=== PATIENT | male | born 1950 | race Caucasian/White ===

== ENCOUNTER 2018-08-24 14:24 | Inpatient (IN) | payer OTHER ==
[2018-08-24] MEDS ORDERED: ACETAMINOPHEN 325 MG TAB PO PRN (16:48)
[2018-08-24] MEDS ORDERED: traMADol 50 MG TAB PO PRN (16:48)
[2018-08-24] MEDS ORDERED: IPRATROPIUM/ALBUTEROL 3 ML DEYVIAL IH PRN (16:48)
[2018-08-24] MEDS ORDERED: ONDANSETRON DISINTEGRATING 4 MG TAB PO PRN (16:48)
--- NOTE | 2018-08-24 17:24 | GHP ---
POST ADMISSION PHYSICIAN EVALUATION AND REHABILITATION TREATMENT PLAN. DATE OF ADMISSION: 08/24/2018 DATE OF EVALUATION: 08/24/2018 TIME OF EVALUATION: 1610 hours. REFERRING FACILITY: [facility]. REFERRING PHYSICIAN: Dr. Ramirez. CONSULTING PHYSICIANS: Dr. Lewis of Neurosurgery and Dr. Walker of pulmonology. 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 IMPAIRMENT GROUP: 2.1. DATE OF ONSET: 08/16/2018. DATE OF SURGERY: 08/19/2018. HISTORY OF PRESENT ILLNESS: This patient came to [facility] on 08/16/2018, with a history of falls and headaches which have been going on for about 2 months. He was found to be hypertensive and required IV nicardipine. He also had hypokalemia, which was replaced. A head CT was done, which showed a cerebellar mass with obstructive hydrocephalus. 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 He was started on dexamethasone. He went to the operating room on 08/19/2018, for a right cerebellar craniotomy and resection of the mass. Postoperatively, he had pain, hypoxemia, steroid induced leukocytosis, and issues with blood pressure management. Pathology showed hemangioblastoma. He had an abdominal CT to evaluate for renal masses. There were multiple lesions which were too small to characterize for which he was recommended to have a followup renal ultrasound in approximately 6 months. He also had an incidental finding of aneurysms of the infrarenal aorta and left common iliac artery. Additionally, bullous emphysema was seen. OTHER STUDIES AND LABS: In the hospital, he had multiple brain imaging pre and postoperative. Hypokalemia was corrected. Otherwise, renal function and electrolytes were generally normal. Liver functions were normal. Brain natriuretic peptide was minimally elevated to 15. Lipase was normal. CBC initially was normal. Subsequently, he had anemia and there was leukocytosis. On 08/22/2018, CBC showed an elevated white blood cell count of 13.6, hemoglobin was 12.1 and hematocrit was 34.6. Coagulation studies showed normal PT and PTT. PRECAUTIONS: He is a fall risk. ACTIVE COMORBIDITIES: He has no active tier 1, tier 2 or tier 3 comorbidities. PAST MEDICAL HISTORY: 1. Emphysema. 2. Hypertension. 3. Tobacco dependence. PAST SURGICAL HISTORY: He has had bilateral inguinal and umbilical hernia repairs. He has had right shoulder surgery. PRE-HOSPITAL MEDICATIONS: Only ibuprofen as needed. ADMISSION MEDICATIONS: 1. Acetaminophen 650 mg p.o. q.4 hours p.r.n. 2. Amlodipine 10 mg p.o. daily. 3. Dexamethasone taper. 4. Enoxaparin 40 mg subcutaneous daily. 5. Hydralazine 25 mg p.o. t.i.d. 6. Ipratropium/albuterol nebulizer q.6 hours. 7. Lisinopril 20 mg p.o. daily. 8. Ondansetron 4 mg p.o. q.4 hours p.r.n. 9. Tramadol 50 mg p.o. q.6 hours p.r.n. ALLERGIES: There are no known drug allergies. PSYCHOSOCIAL HISTORY: He is . He lives with his . He is a former smoker and says that he has quit. The hospital admission note reports current marijuana use. He does not use alcohol. He is retired from [employer] or [employer] work on the [employer]. FAMILY HISTORY: Noncontributory. REVIEW OF SYSTEMS: He denies pain. He says he has an occasional cough. He has double vision, which resolves if he closes one or the other eye. He denies weakness, numbness or tingling. He denies chest pain or palpitations. He denies nausea, vomiting, constipation, diarrhea. He thinks he has wax in his ears and reports reduced hearing, especially out of the left ear. He reports urinary frequency. He says he has been sleeping well, but interrupted by the need to urinate. Otherwise, a 10-point review of systems is negative. PHYSICAL EXAM: VITAL SIGNS: Blood pressure is 144/91, heart rate is 108, respiratory rate is 17 oxygen saturation is 93% on room air. Temperature is 36.6 degrees centigrade. His weight is 58.9 kg for a body mass index of 19.2. GENERAL: This is a well-nourished, well-developed man, unkempt with long hair and a long moon, appears his chronologic age, cooperative and in no acute distress. HEENT: Extraocular movements are intact except for deficit to accommodation on near vision. Pupils are equal, round, reactive to light. Mucous membranes are moist. Dentition is in moderately poor condition with overt halitosis. He has an uncrowded airway, Mallampati class 2. NECK: Supple. HEART: There is a regular rate and rhythm with no murmurs, rubs, or gallops. He is tachycardic. LUNGS: Clear to auscultation bilaterally. ABDOMEN: Soft, nontender, nondistended with normoactive bowel sounds. EXTREMITIES: There is no cyanosis, clubbing, or edema. NEUROLOGIC: He is alert and oriented x3. Cranial nerves 2-12 are grossly intact. There is no focal weakness. Sensation is intact to light touch. Finger-nose testing is very mildly impaired on the right, is normal on the left. Tbit-ib-[id number] coordination is normal. There is no pronator drift. CURRENT LEVEL OF FUNCTION per the pre-admission screen. Regarding diet, feeding , and swallowing, he was on a regular diet. Grooming was done with standby assist and voice cues. Dressing upper body required setup. Lower body required standby assist for safety and balance during clothing management. Transfers were done with contact guard to standby assist. He was using a bath/ shower seat or chair, grab bars, and a handheld shower. Balance required contact guard to minimal assist. Endurance was fair. He was able to ambulate 300 feet with contact guard to minimal assist without an assistive device. There were 2 episodes of path deviation requiring minimal assist to prevent loss of balance and maintain path. Communication and cognition were considered normal. He was a fall risk. On today's exam there are no significant changes from the pre-admission screen. IMPRESSION: This is a 68-year-old man who developed balance impairment and falls, as well as headaches, which prompted hospital evaluation. He was found to have a right cerebellar mass. He underwent craniotomy and excision of the mass. He was placed on dexamethasone to reduce brain edema and he continues on a dexamethasone taper. He was found to have a high blood pressure and was initially treated with IV nicardipine and subsequently maintained on 3 oral medications. He otherwise came through surgery well without significant hospital complications and is medically stable and ready for inpatient rehabilitation. His goal is to complete a rehabilitation stay and then return home with his family. For a safe discharge, he will need to achieve independence with bed mobility, transfers, toileting, and dressing. He will need to ambulate with modified independence with the least restrictive device on level and unlevel surfaces. He may continue to require supervision for bathing and he likely will require assistance for household management, and shopping. He will need to have pain and blood pressure well managed. He will have therapy with Physical Therapy, Occupational Therapy, and Speech and Language Pathology for 60 minutes per day for each discipline on 5-7 days of the week. His anticipated duration of stay is 5-7 days. It is anticipated that upon discharge, he will continue to benefit from home health services including Speech and Language Pathology, Occupational Therapy, and Physical Therapy. Additionally, he will likely benefit from a brain injury support group. PLAN 1. Debility with balance impairment, status post craniotomy and excision of cerebellar hemangioblastoma. PT and OT to optimize mobility and activities of daily living to the independent or modified independent level. 2. Question of cognitive effects. Assessment and treatment per Speech and Language Pathology. 3. Diplopia. Expect that this will gradually improve as the brain adapts. Unclear whether cerebellar function involving eye movements will recover. He will be seen by occupational therapy for eye patching or other strategies. 4. Hypertension. Continue current medications. Ideally, he will not be needing the hydralazine. Blood pressure may improve as dexamethasone is tapered. 5. Emphysema. He has been prescribed an ipratropium/albuterol nebulizer on a p.r.n. basis every 6 hours. He will be monitored for any difficulty with breathing. He is not hypoxic at rest. 6. Tachycardia of unclear etiology. He has been intermittently tachycardic throughout his hospitalization. There has not been an EKG done, but he has a regular rhythm. He will be monitored and would consider further evaluation if it persists or if he appears to have any cardiorespiratory compromise. 7. History of tobacco dependence syndrome. He reports that he quit in the past and is not desiring any nicotine replacement. 8. 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 He will have followup which can be coordinated per his primary care per physician. 9. Hypodensities of the kidneys. He should have a followup ultrasound in 6 months. 10. Followup. He needs to establish with a primary care physician. Will discuss with Neurosurgery regarding when they would like to see him again. /[id number]/MODL and [id number]/MODL [facility]
[2018-08-24] MEDS: DEXAMETHASONE 4 MG TAB PO SCH (18:40)
[2018-08-24] MEDS: hydrALAZINE 25 MG TAB PO SCH (20:39)
[2018-08-25] MEDS: DEXAMETHASONE 4 MG TAB PO SCH ×4 (01:15→23:53)
[2018-08-25] MEDS: amLODIPine BESYLATE 5 MG TAB PO SCH (09:24)
[2018-08-25] MEDS: ENOXAPARIN 40 MG/0.4 ML SYR SC SCH (09:25)
[2018-08-25] MEDS: LISINOPRIL 20 MG TAB PO SCH (09:25)
[2018-08-25] MEDS: hydrALAZINE 25 MG TAB PO SCH ×3 (09:25→21:14)
--- NOTE | 2018-08-25 10:34 | SOAPPROG ---
SOAP Progress Note Assessment/Plan: Assessment: Debility with balance impairment, status post craniotomy and excision of cerebellar hemangioblastoma. PT and OT to optimize mobility and activities of daily living to the independent or modified independent level. Question of cognitive effects. Assessment and treatment per Speech and Language Pathology. Diplopia. Expect that this will gradually improve as the brain adapts. Unclear whether cerebellar function involving eye movements will recover. He will be seen by occupational therapy for eye patching or other strategies. Hypertension. Continue current medications. Ideally, he will not be needing the hydralazine. Blood pressure may improve as dexamethasone is tapered. Tachycardia of unclear etiology. He has been intermittently tachycardic throughout his hospitalization. There has not been an EKG done, but he has a regular rhythm. He will be monitored and would consider further evaluation if it persists or if he appears to have any cardiorespiratory compromise. Urinary frequency. Check bladder scan. No sign signs or symptoms otherwise of UTI. Emphysema. He has been prescribed an ipratropium/albuterol nebulizer on a p.r.n. basis every 6 hours. He will be monitored for any difficulty with breathing. He is not hypoxic at rest. Cerumen. Debrox begun 08/25/2018. History of tobacco dependence syndrome. He reports that he quit in the past and is not desiring any nicotine replacement. 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 He will have followup which can be coordinated per his primary care per physician. Hypodensities of the kidneys. He should have a followup ultrasound in 6 months. FOLLOW-UP: He needs to establish with a primary care physician. Will discuss with Neurosurgery regarding when they would like to see him again. 08/25/18 11:55 Subjective: No complaints. Slept well. No fevers or chills, no cough or dyspnea. Still has frequent urination. No dysuria. Objective: Vital Signs Temp Pulse Resp BP Pulse Ox 37.0 C 109 H 18 154/108 H 97 08/25/18 06:42 08/25/18 06:42 08/25/18 06:42 08/25/18 06:42 08/25/18 06:42 08/24/18 08/25/18 08/26/18 05:59 05:59 05:59 Intake Total 540 600 Balance 540 600 Physical Exam - Physical Exam General Appearance: WD/WN, alert, no apparent distress Respiratory: normal breath sounds, No crackles, No rhonchi, No wheezing Cardiac/Chest: regular rate, rhythm, No edema, No diastolic murmur, No systolic murmur Skin: normal color, warm/dry Neuro/Psych: alert, normal mood/affect, oriented x 3 ICD10 Worksheet Patient Problems: Problems Problem Status Onset Cerebellar mass Acute Hydrocephalus Acute Hypertension Acute
--- NOTE | 2018-08-25 10:34 | PDOREHIP ---
Admission [facility] - Admission - 3 Day Assessment Period Admission Date/Day 1: 08/24/18 Day 2: 08/25/18 Day 3: 08/26/18 - Active Diagnoses Comorbidities and Co-existing Conditions at Admission: 98169. None of the Above - Skin Conditions Unhealed Pressure Ulcer (1 or more/Stage 1 or >)-Admission: 0. No # Stage 1 Pressure Ulcers-Admission: 0 # Stage 2 Pressure Ulcers-Admission: 0 # Stage 3 Pressure Ulcers-Admission: 0 # Stage 4 Pressure Ulcers-Admission: 0 # Unstageable Pressure Ulcers (Non-remove Dress)-Admission: 0 # Unstageable Pressure Ulcers (Slough/Eschar)-Admission: 0 # Unstageable Pressure Ulcers (Deep Tissue Injury)-Admission: 0
[2018-08-25] MEDS: CARBAMIDE PEROXIDE 15 ML OTIC.BTL EACHEAR SCH ×2 (14:54→21:15)
[2018-08-26] MEDS: ENOXAPARIN 40 MG/0.4 ML SYR SC SCH (08:49)
[2018-08-26] MEDS: hydrALAZINE 25 MG TAB PO SCH ×3 (08:51→21:08)
[2018-08-26] MEDS: amLODIPine BESYLATE 5 MG TAB PO SCH (08:51)
[2018-08-26] MEDS: DEXAMETHASONE 4 MG TAB PO SCH ×3 (08:51→17:07)
[2018-08-26] MEDS: LISINOPRIL 20 MG TAB PO SCH (08:51)
[2018-08-26] MEDS: CARBAMIDE PEROXIDE 15 ML OTIC.BTL EACHEAR SCH ×2 (08:52→21:08)
--- NOTE | 2018-08-26 15:50 | SOAPPROG ---
SOAP Progress Note Assessment/Plan: Assessment: Debility with balance impairment, status post craniotomy and excision of cerebellar hemangioblastoma. * Independent with bed mobility. Ambulated 400 ft with a four wheeled walker and supervision. Has tendency to lose balance to the right but self corrects. Climbed and descended 12 steps in a step over step pattern with 1 rail and cues and supervision for safety. Standby assist for ADLs except minimal assist for bathing. Still complaining of double vision. * Continue PT and OT to optimize mobility and activities of daily living to the independent or modified independent level. Cognitive impairment. * 23/30 on the [place] cognitive assessment on 08/25/2018. Deficits with recall, word generation and visuospatial task (attention to detail). Noted to have impulsivity. * Continue Speech and Language Pathology. Diplopia. Expect that this will gradually improve as the brain adapts. Unclear whether cerebellar function involving eye movements will recover. He will be seen by occupational therapy for eye patching or other strategies. Hypertension. Continue current medications. Ideally, he will not be needing the hydralazine. Blood pressure may improve as dexamethasone is tapered; next dose reduction is in the evening of 08/27/2018, from 4 mg q.8 hours to 4 mg q.12 hours. Continue to monitor as dexamethasone dose is reduced. Tachycardia of unclear etiology. He has been intermittently tachycardic throughout his hospitalization. There has not been an EKG done, but he has a regular rhythm. * Improving on vitals 08/26/2018. Urinary frequency. Check bladder scan. No sign signs or symptoms otherwise of UTI. Emphysema. He has been prescribed an ipratropium/albuterol nebulizer on a p.r.n. basis every 6 hours. He will be monitored for any difficulty with breathing. He is not hypoxic at rest. Cerumen. Debrox begun 08/25/2018. History of tobacco dependence syndrome. He reports that he quit in the past and is not desiring any nicotine replacement. 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 He will have followup which can be coordinated per his primary care per physician. Hypodensities of the kidneys. He should have a followup ultrasound in 6 months. Prophylaxis. Mobility is much improved. Will discontinue enoxaparin starting 08/27/2018. FOLLOW-UP: He needs to establish with a primary care physician. Will discuss with Neurosurgery regarding when they would like to see him again. 08/26/18 15:52 Subjective: Slept well. Reports urinary frequency. Not in pain. Likes the front wheeled walker that he is using here and like to have one at home especially for going out to the mailbox to check the mail with the dog. Objective: Vital Signs Temp Pulse Resp BP Pulse Ox 36.9 C 89 16 136/95 H 94 08/26/18 08:00 08/26/18 08:00 08/26/18 08:00 08/26/18 08:51 08/26/18 08:00 08/25/18 08/26/18 08/27/18 05:59 05:59 05:59 Intake Total 540 2250 Balance 540 2250 Physical Exam - Physical Exam General Appearance: WD/WN, alert, no apparent distress Respiratory: No respiratory distress, No accessory muscle use Skin: normal color, warm/dry Neuro/Psych: alert, normal mood/affect, oriented x 3 ICD10 Worksheet Patient Problems: Problems Problem Status Onset Cerebellar mass Acute Hydrocephalus Acute Hypertension Acute
[2018-08-26] MEDS: ACETAMINOPHEN 650 MG/20.3 ML UDCUP PO PRN (17:41)
[2018-08-27] MEDS: DEXAMETHASONE 4 MG TAB PO SCH ×3 (01:56→17:21)
[2018-08-27] MEDS: hydrALAZINE 25 MG TAB PO SCH ×3 (08:40→20:43)
[2018-08-27] MEDS: LISINOPRIL 20 MG TAB PO SCH (08:42)
[2018-08-27] MEDS: amLODIPine BESYLATE 5 MG TAB PO SCH (08:43)
[2018-08-27] MEDS: CARBAMIDE PEROXIDE 15 ML OTIC.BTL EACHEAR SCH ×2 (08:43→20:42)
[2018-08-27] MEDS: TAMSULOSIN HCL 0.4 MG CAP PO SCH (09:31)
--- NOTE | 2018-08-27 11:49 | SOAPPROG ---
SOAP Progress Note Assessment/Plan: Assessment: Debility with balance impairment, status post craniotomy and excision of cerebellar hemangioblastoma. * Initial functional independence measure 97 on 08/27/2018. Independent with bed mobility, transfers and ambulation with a 4 wheeled walker. He ambulated 150 ft. He had loss of balance with a cane. He climbed and descended 12 steps with 1 rail and supervision. He has decreased strength proprioception and balance and a rightward list. He is independent for ADLs. Still complaining of double vision. * Continue PT and OT to optimize mobility and activities of daily living to the independent or modified independent level. Cognitive impairment. * /30 on the [place] cognitive assessment on 08/25/2018. Deficits with executive function, recall, word generation and visuospatial task (attention to detail). Noted to have impulsivity. * Continue Speech and Language Pathology. Diplopia. Expect that this will gradually improve as the brain adapts. Unclear whether cerebellar function involving eye movements will recover. He will be seen by occupational therapy for eye patching or other strategies. Hypertension. Continue current medications. Ideally, he will not be needing the hydralazine. Blood pressure may improve as dexamethasone is tapered; next dose reduction is in the evening of 08/27/2018, from 4 mg q.8 hours to 4 mg q.12 hours. Continue to monitor as dexamethasone dose is reduced. Urinary retention. Had catheterization x1. Initiate tamsulosin 0.4 mg q.day starting 08/27/2018. Monitor for improved voiding, and for improvement in urinary frequency. Tachycardia of unclear etiology. He has been intermittently tachycardic throughout his hospitalization. There has not been an EKG done, but he has a regular rhythm. * Improving on vitals 08/26/2018. Emphysema. He has been prescribed an ipratropium/albuterol nebulizer on a p.r.n. basis every 6 hours. He will be monitored for any difficulty with breathing. He is not hypoxic at rest. Cerumen. Debrox begun 08/25/2018. Continues to have cerumen impaction. History of tobacco dependence syndrome. He reports that he quit in the past and is not desiring any nicotine replacement. 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 He will have followup which can be coordinated per his primary care per physician. Hypodensities of the kidneys. He should have a followup ultrasound in 6 months. Prophylaxis. Mobility is much improved. Will discontinue enoxaparin starting 08/27/2018. DISPOSITION: Attended staffing, 15 min. Discussed with case management, nursing, dietitian, PT, OT, DNA ANALYST. Lives with his in a trailer; several steps to enter. Doing well regarding mobility and ADLs. Discharge set for . FOLLOW-UP: He needs to establish with a primary care physician. Will discuss with Neurosurgery regarding when they would like to see him again. 08/27/18 11:44 Subjective: Still feels like his left ear is blocked. Had urinary retention on bladder scan and was catheterized; he did not like being catheterized. Otherwise without complaints. Objective: Vital Signs Temp Pulse Resp BP Pulse Ox 36.8 C 99 18 131/90 H 93 08/27/18 06:04 08/27/18 06:04 08/27/18 06:04 08/27/18 08:43 08/27/18 06:04 08/26/18 08/27/18 08/28/18 05:59 05:59 05:59 Intake Total 2250 1800 1170 Output Total 1050 650 Balance 2250 750 520 - Time Spent With Patient Time Spent With Patient: Greater than 35 min floor time today, including more than 50% of time in coordination of care during staffing meeting, and counseling patient. Physical Exam - Physical Exam General Appearance: WD/WN, alert, no apparent distress EENT: other (External auditory 0 canals cerumen impacted, left more so than right.) Respiratory: No respiratory distress, No accessory muscle use Abdomen: normal bowel sounds, non-tender, soft, No distended Skin: normal color, warm/dry Neuro/Psych: alert, normal mood/affect, oriented x 3 ICD10 Worksheet Patient Problems: Problems Problem Status Onset Cerebellar mass Acute Hydrocephalus Acute Hypertension Acute
[2018-08-28] MEDS: ACETAMINOPHEN 650 MG/20.3 ML UDCUP PO PRN (02:06)
[2018-08-28] MEDS: DEXAMETHASONE 4 MG TAB PO SCH ×2 (05:07→16:39)
[2018-08-28] MEDS: LISINOPRIL 20 MG TAB PO SCH (08:01)
[2018-08-28] MEDS: TAMSULOSIN HCL 0.4 MG CAP PO SCH (08:01)
[2018-08-28] MEDS: amLODIPine BESYLATE 5 MG TAB PO SCH (08:04)
[2018-08-28] MEDS: CARBAMIDE PEROXIDE 15 ML OTIC.BTL EACHEAR SCH ×2 (08:05→19:51)
[2018-08-28] MEDS: hydrALAZINE 25 MG TAB PO SCH (08:05)
--- NOTE | 2018-08-28 11:42 | SOAPPROG ---
SOAP Progress Note Assessment/Plan: Assessment: Debility with balance impairment, status post craniotomy and excision of cerebellar hemangioblastoma. * Initial functional independence measure 97 on 08/27/2018. Independent with bed mobility, transfers and ambulation with a 4 wheeled walker. He ambulated 150 ft. He had loss of balance with a cane. He climbed and descended 12 steps with 1 rail and supervision. He has decreased strength proprioception and balance and a rightward list. He is independent for ADLs. Still complaining of double vision. * Advanced to independent in his room 24 hr a day with front wheeled walker. * Continue PT and OT to optimize mobility and activities of daily living to the independent or modified independent level. Cognitive impairment. * 23/30 on the Atul cognitive assessment on 08/25/2018. Deficits with executive function, recall, word generation and visuospatial task (attention to detail). Noted to have impulsivity. * Continue Speech and Language Pathology. Diplopia. Expect that this will gradually improve as the brain adapts. Unclear whether cerebellar function involving eye movements will recover. * Has eye patch per OT. * Followup with Neuro-Ophthalmology after discharge. Hypertension. Continue current medications. Blood pressure is improving as dexamethasone is tapered; last dose reduction in the evening of 08/27/2018, from 4 mg q.8 hours to 4 mg q.12 hours. Continue to monitor as dexamethasone dose is reduced. * Blood pressure 105/71 this morning, 08/28/2018. Discontinue hydralazine 08/28. Urinary retention. Had catheterization x1. Initiate tamsulosin 0.4 mg q.day starting 08/27/2018. Monitor for improved voiding, and for improvement in urinary frequency. * Nurse reports voiding larger volumes and residuals less after initiating tamsulosin. Tachycardia of unclear etiology. He has been intermittently tachycardic throughout his hospitalization. There has not been an EKG done, but he has a regular rhythm. * Improving on vitals 08/26/2018. Emphysema. He has been prescribed an ipratropium/albuterol nebulizer on a p.r.n. basis every 6 hours. He will be monitored for any difficulty with breathing. He is not hypoxic at rest. * Has not needed nebulizer treatment during his rehab stay Cerumen. Debrox begun 08/25/2018. Continues to have cerumen impaction. History of tobacco dependence syndrome. He reports that he quit in the past and is not desiring any nicotine replacement. 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 He will have followup which can be coordinated per his primary care per physician. Hypodensities of the kidneys. He should have a followup ultrasound in 6 months. Prophylaxis. Mobility is much improved. Discontinued enoxaparin starting 08/27. DISPOSITION: Lives with his in a trailer; several steps to enter. Doing well regarding mobility and ADLs. Discharge set for 08/29/2018. FOLLOW-UP: New primary care physician is Belkis Callaway NP. Follow-up with Dr. Xie, neurosurgery, on approximately 08/07/2018. Sutures and are dissolvable and do not need to be removed. JUSTIFICATION FOR WALKER: This patient has a mobility limitation that significantly impairs 1 or more mobility related ADLs in the home. He can use a walker safely. His functional mobility deficit cannot be resolved with a cane. 08/28/18 12:25 Subjective: Still has double vision, improved with eye patch. Otherwise without complaints. Objective: Vital Signs Temp Pulse Resp BP Pulse Ox 36.4 C 102 H 16 105/71 95 08/28/18 06:15 08/28/18 06:15 08/28/18 06:15 08/28/18 08:05 08/28/18 06:15 08/27/18 08/28/18 08/29/18 05:59 05:59 05:59 Intake Total 1800 3490 Output Total 1050 2600 Balance 750 890 Physical Exam - Physical Exam General Appearance: WD/WN, alert, no apparent distress EENT: other (Cerumen impaction on left ear is improving. There is now a gap between cerumen in the external auditory canal anteriorly.) Respiratory: No respiratory distress, No accessory muscle use Skin: normal color, warm/dry Neuro/Psych: alert, normal mood/affect, oriented x 3 ICD10 Worksheet Patient Problems: Problems Problem Status Onset Cerebellar mass Acute Hydrocephalus Acute Hypertension Acute
--- NOTE | 2018-08-28 12:49 | PDOREHIP ---
Admission [facility] - Admission - 3 Day Assessment Period Admission Date/Day 1: 08/24/18 Day 2: 08/25/18 Day 3: 08/26/18 - Active Diagnoses Comorbidities and Co-existing Conditions at Admission: 50434. None of the Above Discharge [facility] - Discharge - 3 Day Assessment Period 2 Days Prior to Anticipated Discharge Date: 08/27/18 1 Day Prior to Anticipated Discharge Date: 08/28/18 Anticipated Discharge Date: 08/29/18 - Discharge Skin Conditions Unhealed Pressure Ulcer (1 or more/Stage 1 or >)-Discharge: 0. No # Stage 1 Pressure Ulcers-Discharge: 0 # Stage 2 Pressure Ulcers-Discharge: 0 # of These Stage 2 Pressure Ulcers Present on Admission: 0 # Stage 3 Pressure Ulcers-Discharge: 0 # of These Stage 3 Pressure Ulcers Present on Admission: 0 # Stage 4 Pressure Ulcers-Discharge: 0 # of These Stage 4 Pressure Ulcers Present on Admission: 0 # Unstageable Pressure Ulcers (Non-remove Dress)-Discharge: 0 # These Unstageable Pressure Ulcers (NRD)-Present on Admit: 0 # Unstageable Pressure Ulcers (Slough/Eschar)-Discharge: 0 # These Unstageable Pressure Ulcers(Slough) Present on Admit: 0 # Unstageable Pressure Ulcers (Deep Tissue Injury)-Discharge: 0 # These Unstageable Pressure Ulcers (DTI) Present on Admit: 0
[2018-08-29] MEDS: DEXAMETHASONE 4 MG TAB PO SCH (04:54)
[2018-08-29 05:56] VITALS: BP 138/80
[2018-08-29] MEDS: LISINOPRIL 20 MG TAB PO SCH (08:24)
[2018-08-29] MEDS: TAMSULOSIN HCL 0.4 MG CAP PO SCH (08:24)
[2018-08-29] MEDS: amLODIPine BESYLATE 5 MG TAB PO SCH (08:25)
[2018-08-29] MEDS: CARBAMIDE PEROXIDE 15 ML OTIC.BTL EACHEAR SCH (10:33)
--- NOTE | 2018-08-29 13:12 | GDS ---
ADMITTING DIAGNOSES: Debility and balance impairment, status post craniotomy and excision of cerebellar hemangioblastoma. DISCHARGE DIAGNOSES: Debility and balance impairment, status post craniotomy and excision of cerebellar hemangioblastoma. OTHER DISCHARGE DIAGNOSES: 1. Diplopia. 2. Hypertension. 3. Urinary frequency and possible benign prostatic hyperplasia. COMPLICATIONS: There were none. PROCEDURES: There were none. CONSULTATIONS: There were none. HISTORY/HOSPITAL COURSE: This patient was admitted from [facility]. He had a history of falls and headaches which had been going on for about [address] showed a cerebellar mass with obstructive hydrocephalus. MR imaging was consistent with hemangioblastoma of the right cerebellum. He was also found to be hypertensive and initially required IV nicardipine to control his blood pressure. He was treated with dexamethasone initially and then on 08/19/2018, he had surgery with craniotomy and resection of the mass. Pathology showed hemangioblastoma. Given the possibility of von Hippel-Lindau syndrome, an abdominal CT was done to evaluate for renal masses. There were multiple lesions which were too small to characterize, and it was recommended that he have a followup renal ultrasound in approximately 6 months. There were also incidental findings of aneurysms of the infrarenal aorta and left common iliac artery, and bullous emphysema was seen in the lungs. He did well in rehabilitation. He soon was independent with bed mobility, transfers, and ambulation using a 4-wheeled walker. He was able to ambulate 150 feet. When he tried a cane, he had loss of balance. He was able to climb and descend 12 steps with 1 rail and supervision. He had decreased strength, proprioception, and balance, and he had a rightward list. He was independent for activities of daily living and was allowed to be independent in his room 24 hours a day using a front-wheeled walker. He had diplopia which symptomatically improved with the use of eye patching alternating eyes. He had cognitive screening per Speech Therapy. He scored 23/30 on the Atul Cognitive Assessment on 08/25/2018. He had deficits to executive function, recall, word generation, and attention to detail. He made progress regarding attention to detail and he was trained with memory aids including a medication reference sheet and use of a medication system at home. The day before discharge, his deficits to attention, judgment, safety, and memory were considered mild. He was independent with the use of compensations, for instance , his medication list. Hypertension: He was continued on medications ordered out of the hospital, which were amlodipine 10 mg daily and lisinopril 20 mg daily. He was also initially on hydralazine 25 mg t.i.d., but with stepwise tapering of dexamethasone, his blood pressure began to run low and the hydralazine was discontinued. On the day of discharge, his blood pressure was 138/80. Regarding urinary frequency, he had ultrasound bladder scanning and was found to be significantly retaining urine. He required catheterization x1. Tamsulosin was initiated at 0.4 mg daily starting 08/27/2018. He had improvement in urinary frequency and reduction in residuals and required no more catheterization. He had considerable cerumen especially in the left ear. He was treated with carbamide peroxide drops with some improvement. Regarding the finding of emphysema on lung images available through abdominal CT scans, he had no dyspnea, no wheezing on exam, and he did not require the albuterol/ipratropium nebulizer, which had been prescribed. DISCHARGE DISPOSITION: Home with his . Condition is good. DIET: Regular. ACTIVITY: Ad cristina, but he should use his walker for mobility. DISCHARGE MEDICATIONS: 1. Amlodipine 10 mg p.o. daily. 2. Carbamide peroxide 5 drops each ear b.i.d. 3. Dexamethasone on a taper from 4 mg q.12 hours to 2 mg daily to be completed on 09/05/2018. 4. Lisinopril 20 mg p.o. daily. 5. Tamsulosin 0.4 mg p.o. daily. ISSUES TO BE ADDRESSED AT FOLLOWUP: 1. Mobility. He will continue outpatient physical therapy after discharge. He can follow up with his primary care provider regarding his progress. 2. Diplopia. He should have an evaluation by Neuro-Ophthalmology after discharge. 3. Hypertension. He may continue to have low blood pressures as dexamethasone is tapered and discontinued. He should follow up with his primary care provider. 4. Urinary retention has improved with tamsulosin. Again, he can follow up with Primary Care. 5. 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 He should follow up with Primary Care and likely should have imaging every 6 months to a year. 6. Hypodensities in the kidneys likely not consistent with von Hippel-Lindau syndrome. He is advised to have a renal ultrasound done in approximately 6 months. TIME SPENT: Greater than 30 minutes was spent on this discharge including medication reconciliation, coordination of care, and counseling patient. /[id number]/MODL MTDD
[2018-08-30] MEDS ORDERED: DEXAMETHASONE 2 MG TAB PO SCH (18:00)
[2018-09-03] MEDS ORDERED: DEXAMETHASONE 2 MG TAB PO SCH (06:00)
== END 2018-08-29 13:00 | disposition home or self-care (01) | DRG 950 ==
LOC: BREH 14:44
PROVIDERS: ADMIT Internal Medicine; ATTEND Internal Medicine
PROC: F07M3ZZ Motor Function Treatment of Musculoskeletal System - Whole Body (ICD-10-PCS; principal; 2018-08-24)
PROC: F0636ZZ Communicative/Cognitive Integration Skills Treatment of Neurological System - Whole Body (ICD-10-PCS; principal; 2018-08-24)
PROC: F08Z7ZZ Vocational Activities and Functional Community or Work Reintegration Skills Treatment (ICD-10-PCS; principal; 2018-08-24)
DX: Z48.3 Aftercare following surgery for neoplasm (principal); Z86.03 Personal history of neoplasm of uncertain behavior; R53.81 Other malaise; H53.2 Diplopia; R26.89 Other abnormalities of gait and mobility; I10 Essential (primary) hypertension; J43.9 Emphysema, unspecified; N40.1 Benign prostatic hyperplasia with lower urinary tract symptoms; R35.0 Frequency of micturition; I71.4 Abdominal aortic aneurysm, without rupture; H61.20 Impacted cerumen, unspecified ear; R41.844 Frontal lobe and executive function deficit; R00.0 Tachycardia, unspecified; Z87.891 Personal history of nicotine dependence
CPT/HCPCS: 92507-GN; 92523-GN; 97110-GO; 97110-GP; 97112-GP; 97116-GP; 97161-GP; 97165-GO; 97530-GO; 97530-GP; 97535-GO; J1650

== ENCOUNTER → 2019-02-25 | Outpatient (CLI) | payer OTHER ==
[~2019-02-25] MED LIST: GADOBUTROL 10 ML VIAL IVP ONE
== END ==
LOC: FIMAGING 10:49
PROVIDERS: ATTEND Nurse Practitioner Adult Health
DX: Z09 Encounter for follow-up examination after completed treatment for conditions other than malignant neoplasm (principal); D18.02 Hemangioma of intracranial structures; D48.2 Neoplasm of uncertain behavior of peripheral nerves and autonomic nervous system
CPT/HCPCS: 70553; A9585